=== PATIENT | male | born 1985 | race Hispanic/Latino ===

== ENCOUNTER 2018-01-15 03:01 | Emergency (ER) | payer BC ==
[2018-01-15 03:23] VITALS: BP 153/92; PULSE 54; RESP 18; TEMP 97.6; O2SAT 98
--- NOTE | 2018-01-15 04:19 | ED PDOC ---
HPI: Psych/Substance Abuse Time Seen by Provider: 01/15/18 03:24 Chief Complaint (Nursing): Upper Extremity Problem/Injury Chief Complaint (Provider): possible anxiety History Per: Patient History/Exam Limitations: no limitations Onset/Duration Of Symptoms: Hrs Current Symptoms Are (Timing): Gone Now Additional Complaint(s): 32 y/o male presents for evaluation of possible panic attack x 3 hours. Patient reports waking up from his sleep panicked: with difficulty taking deep breaths, "spasms" to both sides of jaw, numbness around lips, "heavy" tongue, and numbness to bilateral upper 5th digits. Patient states he had similar symptoms 1 year ago, was evaluated by two different neurologists and diagnosed with anxiety after normal neuro work up, prescribed Lexapro. Patient states he followed up with a psychiatrist who also diagnosed him with anxiety. Patient states he has not taken his Lexapro in 2 days, so duran went to pharmacy to [employer] his prescription and took two tablets after onset of symptoms. Patient notes symptoms to have completely resolved upon interview. Denies headache, dizziness, extremity numbness/weakness, chest pain, shortness of breath, palpitations, drug/alcohol use. Past Medical History Reviewed: Historical Data, Nursing Documentation, Vital Signs Vital Signs: Last Vital Signs Temp 97.6 F 01/15/18 03:13 Pulse 54 L 01/15/18 03:13 Resp 18 01/15/18 03:13 BP 153/92 H 01/15/18 03:13 Pulse Ox 98 01/15/18 03:13 - Medical History PMH: Anxiety - Surgical History Surgical History: No Surg Hx - Family History Family History: States: No Known Family Hx - Allergies Allergies/Adverse Reactions: Allergies Allergy/AdvReac Type Severity Reaction Status Date / Time No Known Allergies Allergy Verified 01/15/18 03:13 Review of Systems ROS Statement: Except As Marked, All Systems Reviewed And Found Negative Respiratory: Positive for: Shortness of Breath Neurological: Positive for: Numbness Psych: Positive for: Anxiety Physical Exam - Reviewed Nursing Documentation Reviewed: Yes Vital Signs Reviewed: Yes - Physical Exam Appears: Positive for: Well, Non-toxic, No Acute Distress Head Exam: Positive for: ATRAUMATIC, NORMAL INSPECTION, NORMOCEPHALIC Skin: Positive for: Normal Color Eye Exam: Positive for: Normal appearance ENT: Positive for: Normal ENT Inspection Cardiovascular/Chest: Positive for: Regular Rate, Rhythm Respiratory: Positive for: Normal Breath Sounds Gastrointestinal/Abdominal: Positive for: Normal Exam Back: Positive for: Normal Inspection Extremity: Positive for: Normal ROM Neurologic/Psych: Positive for: Alert, ore digger II-XII, Oriented. Negative for: Motor/Sensory Deficits - ECG ECG: Positive for: Viewed By Me (reviewed by ED attending) ECG Rhythm: Positive for: Sinus Rhythm O2 Sat by Pulse Oximetry: 98 - Progress ED Course And Treament: Patient remains without symptoms in ED. Patient stable for discharge. Advised follow up psychiatry. COntinue current medications. Return precautions given. Disposition - Clinical Impression Clinical Impression: Anxiety attack - Patient ED Disposition Is Patient to be Admitted: No Counseled Patient/Family Regarding: Studies Performed, Diagnosis, Need For Followup - Disposition Disposition: Routine/Home Disposition Time: 05:19 Condition: IMPROVED Instructions: Anxiety, Adult (DC) Forms: [employer] (Pashto)
--- NOTE | 2018-01-15 23:10 | CARD ---
APPROVED REPORT EKG Measurement Heart [id number] <Conclusion> Sinus bradycardia Otherwise normal ECG
== END 2018-01-15 05:18 | disposition home or self-care (01) ==
LOC: H.ER 03:01
DX: F41.0 Panic disorder [episodic paroxysmal anxiety] (principal)